=== PATIENT | male | born 1995 | race Caucasian/White ===

== ENCOUNTER 2024-12-23 20:48 | Emergency (ER) | payer SELFPAY ==
[2024-12-23 20:52] VITALS: BP 141/30; PULSE 97; RESP 18; TEMP 37.2; O2SAT 100
--- NOTE | 2024-12-23 21:44 | ED.WOUNDLAC ---
HPI - Wound/Laceration General Chief Complaint: Wound/Laceration Stated Complaint: lac to r forearm Time Seen by Provider: 12/23/24 21:26 History of Present Illness HPI narrative: 29-year-old otherwise healthy male with no significant past medical history presenting to the emergency department with a laceration to his right forearm. He was caring a mere when it broke and a junk fell and hit his right arm. He has a very superficial laceration to his right lateral forearm. Does not know if his tetanus is up-to-date. Bleeding controlled at this time and he did clean it at home. No other symptoms and no other injuries. Has had stitches in the past. Related Data Allergies Allergy/AdvReac Type Severity Reaction Status Date / Time No Known Allergies Allergy Verified 12/23/24 20:55 Review of Systems Review of Systems: As reviewed above in HPI Exam Narrative: GENERAL: [Well-appearing, well-nourished, and in no acute distress.] HEAD: [Normocephalic, atraumatic.] EYES: [PERRLA and EOMI.] ENT: Nares clear, no rhinorrhea or epistaxis. Mucous membranes moist. NECK: Supple. CHEST: [Clear to auscultation. No respiratory distress.] HEART: [Regular rate and rhythm]. No murmur heard. [Normal peripheral pulses.] ABDOMEN: [Soft, nondistended], [nontender], [No rigidity or guarding] EXTREMITIES: Normal range of motion. [No edema.] SKIN: There is a 3.5 cm curvilinear laceration to the lateral aspect of the right forearm proximally. Very superficial skin involvement just into the dermis and epidermis but no involvement into the fat, muscle or tissues. Good range of motion distally and no bleeding. NEURO: [No focal deficits]. Alert and oriented [x3.] PSYCH: [Normal mood and affect.] Course Vital Signs Vital signs: Vital Signs Temperature 37.2 C 12/23/24 20:52 Pulse Rate 97 12/23/24 20:52 Respiratory Rate 18 12/23/24 20:52 Blood Pressure 141/30 H 12/23/24 20:52 Pulse Oximetry 100 12/23/24 20:52 Oxygen Delivery Room Air 12/23/24 20:52 Temperature 37.2 C 12/23/24 20:52 Pulse Rate 97 12/23/24 20:52 Respiratory Rate 18 12/23/24 20:52 Blood Pressure 141/30 H 12/23/24 20:52 Pulse Oximetry 100 12/23/24 20:52 Oxygen Delivery Room Air 12/23/24 20:52 Procedures Laceration Laceration 1: Date: 12/23/24 Time: 22:04 Site: upper extremity Side (If applicable): right Size (cm): 3.5 Description: linear and clean Depth: simple, single layer Local Anesthetic: none Pre-repair: wound explored, irrigated, minor debridement and deep structures intact ====== Skin Level ====== Skin layer closed with: dermabond and steri strips ====== Subcutaneous Layer ====== ====== Muscle Layer ====== ====== Tendon Layer ====== Dressing: Non adherent dressing applied over top MDM - Wound/Laceration MDM Narrative Medical decision making narrative: 29-year-old otherwise healthy male with no significant past medical history presenting to the emergency department with a laceration to his right forearm. He was caring a mere when it broke and a junk fell and hit his right arm. He has a very superficial laceration to his right lateral forearm. Does not know if his tetanus is up-to-date. Bleeding controlled at this time and he did clean it at home. No other symptoms and no other injuries. Has had stitches in the past. There is a 3.5 cm curvilinear laceration to the lateral aspect of the right forearm proximally. Very superficial skin involvement just into the dermis and epidermis but no involvement into the fat, muscle or deep tissues. Good range of motion distally and no bleeding. Will attempt primary closure with Steri-Strips and Dermabond given the very superficial laceration with no bleeding. Patient amenable. Tdap was updated. Wound came together nicely with Dermabond and Steri-Strips, patient was given wound care instructions and return precautions. Discharge Plan Discharge Clinical Impression: Laceration Patient Disposition: Home Condition: Stable Instructions: Antibiotic Form, Laceration (ED), Skin Adhesive Care (ED), Skin Adhesive Strips (ED) Additional Instructions: Keep the Dermabond and Steri-Strips dry for the next 24 hours to allow the matrix to cure and start the healing process. You can then change the top layer dressings several times a day if they soak through or get dirty. After 24 hours he can get the area wet but do not scrub vigorously or try to pick off the bandages as they will flake off on their own in addition to the glue matrix. This process usually takes approximately 5 days but sometimes slightly longer. Follow-up with regular doctor. If you notice signs or symptoms of an infection return to the ER. Patient Language: Palestinian Follow-up/Referrals: PHYSICIAN,DECATING MACHINE OPERATOR [Primary Care Provider] - Time of Disposition: 22:07
--- OUTSIDE RECORDS SUMMARY | 2024-12-23 21:47 | XMS_ITS | Clinical Summary ---
Author Organization [facility] [address] Address [address] [place] [id number] Care Team Providers Care Data Warehouse Manager Name Role Phone Unavailable Primary Care Provider Unavailabl e Allergies No known active allergies Medications No known medications Active Problems No known active problems Immunizations Immunization Administration Dates Next Due ([facility])(12 YR UP) COVID-19 VACCINE - EMERGENCY USE AUTHORIZATION, MRNA, [id number](PF) 30 MCG/0.3 ML IM SUSP 10/09/2020,09/17/2020 Social History Tobacco Use Types Packs/Day Years Used Date Smoking Tobacco: Never Assessed Sex and Gender Information Value Date Recorded Sex Assigned at Not on file Legal Sex Male 1:09 PM CDT Gender Identity Not on file Sexual Orientation Not on file Last Filed Vital Signs Vital Sign Reading Time Taken Comments Blood Pressure 134/82 04/27/2021 8:23 AM DIRECTOR ENERGY Pulse 80 04/27/2021 8:23 AM DIRECTOR ENERGY Temperature 36.8 C (98.3 F) 04/27/2021 8:23 AM DIRECTOR ENERGY Respiratory Rate 14 04/27/2021 8:23 AM DIRECTOR ENERGY Oxygen Saturation 98% 04/27/2021 8:23 AM DIRECTOR ENERGY Inhaled Oxygen Concentration - - Weight 49.9 kg (110 lb) 04/27/2021 8:23 AM DIRECTOR ENERGY Height 162.6 cm (5' 4) 04/27/2021 8:23 AM DIRECTOR ENERGY Body Mass Index 18.88 04/27/2021 8:23 AM DIRECTOR ENERGY Plan of Treatment Health Maintenance Due Date Last Done Comments DTAP/TDAP/TD VACCINES (1 - Tdap) 09/27/2014 HEPATITIS B VACCINES (1 of 3 - 19+ 3-dose series) 09/27/2014 COVID-19 Vaccine ( season) 2024 10/09/2020, 09/17/2020 INFLUENZA VACCINE (#1) 2025 HPV VACCINES Aged Out No longer eligi ble based on patient's age to complete this topic Insurance [employer] CHOICE POS II
[2024-12-23] MEDS: TETANUS,DIPHTHERIA,AC PERTUSSIS ADULT (0.5 ML) BOOSTRIX IM (22:14)
== END 2024-12-23 22:22 | disposition home or self-care (01) ==
PROVIDERS: Emergency Provider Student in an Organized Health Care Education/Training Program
DX: S51.811A Laceration without foreign body of right forearm, initial encounter (principal); W25.XXXA Contact with sharp glass, initial encounter; Z23 Encounter for immunization
CPT/HCPCS: 12002; 90471; 90715; 99282